=== PATIENT | female | born 1940 | race Hispanic/Latino ===

== ENCOUNTER 2017-04-27 04:56 | Emergency (ER) | payer MEDICARE, BC ==
[2017-04-27 04:56] VITALS: PULSE 85; BMI 42.5
[2017-04-27 05:15] VITALS: RESP 18; TEMP 97.8
--- NOTE | 2017-04-27 05:37 | ED PDOC ---
Arrival/HPI - General Chief Complaint: Lower Extremity Problem/Injury Time Seen by Provider: 04/27/17 05:32 Historian: Patient - History of Present Illness Narrative History of Present Illness (Text): 04/27/17 05:37 Margie Gutierrez is a 76 year old female, whose past medical history includes A- fib, COPD, CHF and cellulitis, presents to the Emergency department via EMS complaining of right sided pain s/p fall from her recliner chair 3 am this morning. Patient states she was watching TV when she dozed off and fell from her chair onto the floor. Patient states she hit her head and injured her legs. Patient informs discomfort to both her legs, localizing the pain mostly to her right knee and ankles. Patient admits taking Zanax for the pain with no alleviation. Patient denies any chest pain, shortness of breath, abdominal pain , fevers, nausea, vomiting, diarrhea, or any other complaints. Time/Duration: 1-3 hours Symptom Onset: Sudden Symptom Course: Unchanged Quality: Aching Activities at Onset: Light Context: Home Past Medical History - Provider Review Nursing Documentation Reviewed: Yes - Infectious Disease Hx of Infectious Diseases: None - Tetanus Immunization Tetanus Immunization: Unknown - Reproductive Menopause: Yes - Cardiac Hx Cardiac Disorders: Yes Hx Atrial Fibrillation: Yes Hx Congestive Heart Failure: Yes Hx Hypertension: Yes - Pulmonary Hx Chronic Obstructive Pulmonary Disease (COPD): Yes - Neurological Hx Neurological Disorder: No - HEENT Hx HEENT Disorder: No - Renal Hx Renal Disorder: No - Endocrine/Metabolic Hx Diabetes Mellitus Type 2: Yes - Hematological/Oncological Hx Blood Disorders: No - Integumentary Hx Dermatological Disorder: No Hx Cellulitis: Yes (marlen lower legs) - Musculoskeletal/Rheumatological Hx Musculoskeletal Disorders: Yes Hx Back Pain: Yes Hx Falls: Yes Hx Unsteady Gait: Yes (walker/cane) - Gastrointestinal Hx Gastrointestinal Disorders: Yes Hx Gastroesophageal Reflux: Yes - Genitourinary/Gynecological Hx Genitourinary Disorders: No Hx Reproductive Disorders: No - Psychiatric Hx Psychophysiologic Disorder: Yes Hx Anxiety: Yes Hx Depression: Yes Hx Substance Use: No - Past Surgical History Past Surgical History: Non-Contributing - Surgical History Hx Mastectomy: No - Suicidal Assessment Feels Threatened In Home Enviroment: No Family/Social History - Physician Review Nursing Documentation Reviewed: Yes Family/Social History: Unknown Family HX Smoking Status: Former Smoker Hx Alcohol Use: No Hx Substance Use: No Hx Substance Use Treatment: No Allergies/Home Meds Allergies/Adverse Reactions: Allergies digoxin Allergy (Verified 04/27/17 05:09) 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 Home Medications: Home Meds Medication Instructions Recorded Confirmed Albuterol Sulfate [Proair Hfa] 0.09 mg IH PRN PRN 09/14/11 10/11/14 Albuterol/Ipratropium [Duoneb 3 3 ml IH PRN PRN 09/14/11 10/11/14 mg/0.5 mg (3 ml) UD] Furosemide 40 mg PO BID 09/14/11 10/11/14 Lansoprazole [Prevacid] 30 mg PO BID 09/14/11 10/11/14 Diltiazem Hydrochloride [Diltiazem 240 mg PO DAILY 09/16/11 10/11/14 Cd] Metoprolol Tartrate 100 mg PO BID 10/05/13 10/11/14 Alprazolam [Xanax] 0.25 mg PO TID 12/13/13 10/11/14 Dabigatran [Pradaxa] 150 mg PO BID 12/13/13 10/11/14 Docusate Sodium [Colace] 100 mg PO BID 12/13/13 10/11/14 Ferrous Sulfate [Feosol] 325 mg PO DAILY 12/13/13 10/11/14 Magnesium Oxide [Mag-Ox 400] 400 mg PO BID 12/13/13 10/11/14 Potassium Chloride [K-Dur 20] 20 meq PO DAILY 12/13/13 10/11/14 Ranitidine HCl [Zantac] 150 mg PO TID 12/13/13 10/11/14 Review of Systems - Physician Review All systems were reviewed & negative as marked: Yes - Review of Systems Constitutional: Normal. absent: Fevers Eyes: Normal ENT: Normal Respiratory: Normal. absent: SOB Cardiovascular: Normal. absent: Chest Pain Gastrointestinal: Normal. absent: Abdominal Pain, Diarrhea, Nausea, Vomiting Genitourinary Female: Normal Musculoskeletal: Other (Right sided knee discomfort. Discomfort to both ankles s /p fall. ) Skin: Cellulitis Neurological: Normal Endocrine: Normal Hemo/Lymphatic: Normal Psychiatric: Normal Physical Exam Vital Signs Reviewed: Yes Vital Signs Temp Pulse Resp BP Pulse Ox 04/27/17 05:11 97.8 F 61 18 122/45 L 100 Temperature: Afebrile Blood Pressure: Hypotensive Pulse: Regular Respiratory Rate: Normal Appearance: Positive for: Well-Appearing, Non-Toxic, Comfortable, Other (obese famale with limited mobility ) Pain Distress: None Mental Status: Positive for: Alert and Oriented X 3 - Systems Exam Head: Present: Atraumatic, Normocephalic Pupils: Present: PERRL Extroacular Muscles: Present: EOMI Conjunctiva: Present: Normal Mouth: Present: Moist Mucous Membranes Neck: Present: Normal Range of Motion Respiratory/Chest: Present: Clear to Auscultation, Good Air Exchange. No: Respiratory Distress, Accessory Muscle Use Cardiovascular: Present: Regular Rate and Rhythm, Normal S1, S2. No: Murmurs Abdomen: Present: Normal Bowel Sounds. No: Tenderness, Distention, Peritoneal Signs Back: Present: Normal Inspection Upper Extremity: Present: Normal Inspection. No: Cyanosis, Edema Lower Extremity: Present: NORMAL PULSES, Tenderness (anterior right knee), Swelling (minimal both ankles ), Other (lymphedema to both legs. Slight tenderness in both ankles. ). No: Edema Neurological: Present: GCS=15, CN II-XII Intact, Speech Normal Skin: Present: Warm, Dry, Normal Color. No: Rashes Psychiatric: Present: Alert, Oriented x 3, Normal Insight, Normal Concentration Medical Decision Making ED Course and Treatment: 04/27/17 05:46 Impression: 76 year old female presents to the Emergency department for left sided knee pain and ankle pain s/p fall. Plan: -- Motrin -- X-Ray Ankle left+ right -- X-Ray of Right Knee -- Reassess and disposition Progress Notes: - RAD Interpretation Radiology Orders: 04/27/17 05:37 KNEE RIGHT 2 VIEWS (AP & LAT) [RAD] Stat 04/27/17 05:38 ANKLE LEFT 3 VIEWS ROUTINE [RAD] Stat ANKLE RIGHT 3 VIEWS ROUTINE [RAD] Stat - Medication Orders Current Medication Orders: Discontinued Medications Ibuprofen (Motrin Tab) 600 mg PO STAT STA Stop: 04/27/17 05:40 Last Admin: 04/27/17 05:56 Dose: 600 mg - Scribe Statement The provider has reviewed the documentation as recorded by the Scribe Nolvia Short. All medical record entries made by the Scribe were at my direction and personally dictated by me. I have reviewed the chart and agree that the record accurately reflects my personal performance of the history, physical exam, medical decision making, and the department course for this patient. I have also personally directed, reviewed, and agree with the discharge instructions and disposition. Disposition/Present on Arrival - Present on Arrival Any Indicators Present on Arrival: No History of DVT/PE: No History of Uncontrolled Diabetes: No Urinary Catheter: No History of Decub. Ulcer: No History Surgical Site Infection Following: None - Disposition Have Diagnosis and Disposition been Completed?: Yes Diagnosis: Contusion Disposition: HOME/ ROUTINE Disposition Time: 07:10 Patient Plan: Discharge Patient Problems: Current Active Problems Problem Status Onset Contusion Acute Condition: STABLE Forms: [employer] ([place])
[2017-04-27 07:20] VITALS: BP 114/47; PULSE 75; O2SAT 97
--- NOTE | 2017-04-27 09:47 | RAD ---
PROCEDURE: Right Ankle Radiographs. HISTORY: FALL COMPARISON: None FINDINGS: BONES: Normal. No fracture. JOINTS: Normal. No osteoarthritis. Ankle mortise maintained. Talar dome intact SOFT TISSUES: Normal. OTHER FINDINGS: None. IMPRESSION: Normal right ankle radiographs.
--- NOTE | 2017-04-27 09:49 | RAD ---
PROCEDURE: Left Ankle Radiographs. HISTORY: FALL COMPARISON: None FINDINGS: BONES: Normal. No fracture. JOINTS: Normal. No osteoarthritis. Ankle mortise maintained. Talar dome intact SOFT TISSUES: Normal. OTHER FINDINGS: None. IMPRESSION: Normal left ankle radiographs.
--- NOTE | 2017-04-27 09:50 | RAD ---
PROCEDURE: Right Knee Radiographs. HISTORY: FALL COMPARISON: None. FINDINGS: BONES: There is a nondisplaced cortical fracture in the proximal fibula. JOINTS: Normal. No osteoarthritis. JOINT EFFUSION: None. OTHER FINDINGS: None. IMPRESSION: There is a nondisplaced cortical fracture in the proximal fibula.
== END 2017-04-27 08:32 | disposition home or self-care (01) ==
LOC: ED 04:56
DX: S80.10XA Contusion of unspecified lower leg, initial encounter (principal); W07.XXXA Fall from chair, initial encounter; Y92.239 Unspecified place in hospital as the place of occurrence of the external cause